=== PATIENT | male | born 1930 | race Caucasian/White ===

== ENCOUNTER → 2016-12-08 | Outpatient (CLI) | payer MEDICARE ==
[~2016-12-08] MED LIST: ASPI-860 PO; BETA10TA2 PO; HYDR-3702 PO; IRBE300T42 PO; LSNP10T PO; LVT.025T PO; MECL12.518 PO; OMEP20CA6 PO; SIMV40TA PO
== END ==
LOC: RT 11:53
PROVIDERS: ATTEND Internal Medicine Cardiovascular Disease
DX: I48.0 Paroxysmal atrial fibrillation (principal)
CPT/HCPCS: 36415; 82565; 93005